=== PATIENT | male | born 1965 | race Caucasian/White ===

== ENCOUNTER 2024-12-22 09:56 | Emergency (ER) | payer OTHER ==
[~2024-12-22] VITALS: Ht 180.3 cm; Wt 99.8 kg
[2024-12-22 11:38] LABS: Source, Urine Clean Catch
[2024-12-22 11:45] LABS: BASOPHILS ABSOLUTE AUTO 0.03 K/mm3 (0.00-0.23); BASOPHILS PERCENT AUTO 0 % (0-2); EOSINOPHILS ABSOLUTE AUTO 0.18 K/mm3 (0.00-0.68); EOSINOPHILS PERCENT AUTO 2 % (0-6); Hematocrit 38.4 % (37.0-53.0); Hemoglobin 13.2 g/dL (13.5-17.5); IMMATURE GRAN ABSOLUTE AUTO 0.02 K/mm3 (0.00-0.10); IMMATURE GRAN PERCENT AUTO 0 % (0-1); LYMPHOCYTES ABSOLUTE AUTO 7.65 K/mm3 (0.84-5.20); LYMPHOCYTES PERCENT AUTO 70 % (21-46); MONOCYTES ABSOLUTE AUTO 0.51 K/mm3 (0.16-1.47); MONOCYTES PERCENT AUTO 5 % (4-13); Mean Corpuscular HGB Conc 34.4 g/dL (31.5-36.5); Mean Corpuscular Volume 82 fL (80-100); NEUTROPHILS ABSOLUTE AUTO 2.48 K/mm3 (1.96-9.15); NEUTROPHILS PERCENT AUTO 23 % (41-73); NRBC ABSOLUTE 0.02 K/mm3 (0.00-0.02); NRBC Auto 0.2 /100 WBC (0.0-0.2); Platelet Count 122 K/mm3 (150-400); RDW Coefficient Variation 13.4 % (11.7-14.2); RDW Standard Deviation 40.0 fL (35.1-46.3)
[2024-12-22] MEDS ORDERED: NS 1,000 ML IV SCH (11:55)
[2024-12-22] MEDS ORDERED: METF500 PO (11:56)
[2024-12-22] MEDS ORDERED: GLIP10 PO ×2 (11:57→12:17)
[2024-12-22 11:58] LABS: Bilirubin, Urine Neg (Neg); Color, Urine Yellow (P-Yellow); Glucose Qualitative, Urine Neg (Neg); Ketones, Urine Neg (Neg); Leukocyte Esterase, Urine Neg (Neg); Protein, Urine Neg (Neg); Specific Gravity, Urine 1.010 (1.003-1.022); Urobilinogen, Urine NORM (Normal)
[2024-12-22 12:05] LABS: Alanine Aminotransfer (ALT/SGP 31.0 U/L (12-78); Albumin, Blood 3.8 g/dL (3.4-5.0); Albumin/Globulin Ratio 1.5 (0.8-1.8); Anion Gap 6.0 mmol/L (3-11); Aspartate Aminotrans (AST/SGOT 21.0 U/L (12-37); Bilirubin, Total 1.5 mg/dL (0.1-1.0); Blood Urea Nitrogen 10.0 mg/dL (8-24); CO2, Blood 27.0 mmol/L (21-32); Calcium, Blood 8.6 mg/dL (8.5-10.1); Chloride, Blood 106.0 mmol/L (98-108); Creatinine, Blood 0.71 mg/dL (0.60-1.20); Globulin, Blood 2.6 g/dL (2.2-4.0); Glucose, Blood 207.0 mg/dL (70-99); Potassium, Blood 4.0 mmol/L (3.5-5.5); Sodium, Blood 135.0 mmol/L (136-145); Total Protein, Blood 6.4 g/dL (6.4-8.2)
[2024-12-22] MEDS ORDERED: GLUCOPHAGE1000 M1 PO (12:17)
== END 2024-12-22 12:32 | disposition home or self-care (01) ==
LOC: ER 09:56
PROVIDERS: Physician Assistant
DX: E11.65 Type 2 diabetes mellitus with hyperglycemia (principal); Z76.0 Encounter for issue of repeat prescription
CPT/HCPCS: 71046; 80053; 81003; 82010; 82947; 83690; 85025; 99285-25

== ENCOUNTER 2025-01-30 16:05 | Emergency (ER) | payer OTHER ==
[~2025-01-30] VITALS: Ht 175.3 cm; Wt 94.8 kg
[~2025-01-30 16:05] MED LIST: GLIP10 PO; GLUCOPHAGE1000 M1 PO; METF500 PO
[2025-01-30] MEDS ORDERED: OxyCODONE 5 mg/Acetamin 325 mg TABLET PO ONE (17:00)
[2025-01-30 18:02] LABS: Hematocrit 39.1 % (37.0-53.0); Hemoglobin 13.3 g/dL (13.5-17.5); Mean Corpuscular HGB Conc 34.0 g/dL (31.5-36.5); Mean Corpuscular Volume 84 fL (80-100); NRBC ABSOLUTE 0.00 K/mm3 (0.00-0.02); NRBC Auto 0.0 /100 WBC (0.0-0.2); Platelet Count 199 K/mm3 (150-400); RDW Coefficient Variation 14.0 % (11.7-14.2); RDW Standard Deviation 42.6 fL (35.1-46.3)
[2025-01-30 18:20] LABS: Alanine Aminotransfer (ALT/SGP 30.0 U/L (12-78); Albumin, Blood 4.1 g/dL (3.4-5.0); Albumin/Globulin Ratio 1.1 (0.8-1.8); Anion Gap 11.0 mmol/L (3-11); Aspartate Aminotrans (AST/SGOT 15.0 U/L (12-37); Bilirubin, Total 1.2 mg/dL (0.1-1.0); Blood Urea Nitrogen 14.0 mg/dL (8-24); CO2, Blood 25.0 mmol/L (21-32); Calcium, Blood 8.9 mg/dL (8.5-10.1); Chloride, Blood 100.0 mmol/L (98-108); Creatinine, Blood 0.78 mg/dL (0.60-1.20); Globulin, Blood 3.6 g/dL (2.2-4.0); Glucose, Blood 154.0 mg/dL (70-99); Potassium, Blood 4.0 mmol/L (3.5-5.5); Sodium, Blood 132.0 mmol/L (136-145); Total Protein, Blood 7.7 g/dL (6.4-8.2)
[2025-01-30 18:44] LABS: BASOPHILS ABSOLUTE MAN 0.00 K/mm3 (0.00-0.23); BASOPHILS PERCENT MAN 0 % (0-2); EOSINOPHILS ABSOLUTE MAN 0.13 K/mm3 (0.00-0.68); EOSINOPHILS PERCENT MAN 1 % (0-6); LYMPHOCYTES ABSOLUTE MAN 7.83 K/mm3 (0.84-5.20); LYMPHOCYTES PERCENT MAN 57 % (21-46); MONOCYTES ABSOLUTE MAN 0.55 K/mm3 (0.16-1.47); MONOCYTES PERCENT MAN 4 % (4-13); NEUTROPHILS ABSOLUTE MAN 5.22 K/mm3 (1.96-9.15); SEG NEUTROPHILS PERCENT MAN 38 % (41-73)
[2025-01-30] MEDS ORDERED: RX Prepack 6 Tabs Oxycodone 5mg UD ONE (20:10)
[2025-01-30] MEDS ORDERED: CIPR500 PO (20:12)
[2025-01-30] MEDS ORDERED: METF500 PO (20:12)
[2025-01-30] MEDS ORDERED: GLIP5 PO (20:12)
[2025-01-30] MEDS ORDERED: CEPH500 PO (20:12)
== END 2025-01-30 20:24 | disposition home or self-care (01) ==
LOC: ER 16:05
PROVIDERS: Emergency Medicine
DX: E11.628 Type 2 diabetes mellitus with other skin complications (principal); L08.9 Local infection of the skin and subcutaneous tissue, unspecified; Z79.84 Long term (current) use of oral hypoglycemic drugs; Z59.6 Low income; Z59.89 Other problems related to housing and economic circumstances
CPT/HCPCS: 73660; 80053; 85025; 93971; 99284-25; A9270

== ENCOUNTER 2025-02-04 08:35 | Emergency (ER) | payer OTHER ==
[~2025-02-04] VITALS: Ht 180.3 cm; Wt 95.2 kg
[~2025-02-04 08:35] MED LIST changes: +CEPH500 PO; +CIPR500 PO; +GLIP5 PO
[2025-02-04] MEDS ORDERED: Cipro500 MG PO (11:27)
[2025-02-04] MEDS ORDERED: CEPH500 PO (11:27)
== END 2025-02-04 11:27 | disposition home or self-care (01) ==
LOC: ER 08:35
DX: E11.69 Type 2 diabetes mellitus with other specified complication (principal); L08.9 Local infection of the skin and subcutaneous tissue, unspecified; Z79.84 Long term (current) use of oral hypoglycemic drugs
CPT/HCPCS: 99283